=== PATIENT | female | born 1980 | race Caucasian/White ===

== ENCOUNTER 2019-11-11 12:40 | Observation (INO) ==
[2019-11-11] MEDS ORDERED: ASPIRIN PO ONE (12:51)
--- NOTE | 2019-11-11 13:06 | EKG Report ---
Test Performed on : 11/11/2019 12:50:53 PM Test Reason : CP Blood Pressure : / mmHG Vent. Rate : 078 BPM Atrial Rate : 078 BPM P-R Int : 180 ms QRS Dur : 100 ms QT Int : 420 ms P-R-T Axes : 050 037 062 degrees QTc Int : 478 ms Normal sinus rhythm. Normal ECG When compared with ECG of 25-SEP-2017 06:25, No significant change was found Unconfirmed Result
[2019-11-11 13:08] LABS: BASO# 0.02 X1000 (0.0-0.2); BASO% 0.3 % (0.0-0.8); EOS# 0.18 X1000 (0.0-0.7); EOS% 2.7 % (0.0-10.0); HEMATOCRIT 39.3 % (37.0-47.0); HEMOGLOBIN 12.8 g/dL (12.0-16.0); IMM GRAN# 0.02 X1000 (0.0-0.04); IMM GRAN% 0.3 % (0.0-0.5); LYMPH# 2.76 X1000 (1.2-3.4); LYMPH% 42.1 % (20.5-51.1); MCH 28.4 PG (27-31); MCHC 32.6 g/dL (33-37); MCV 87.1 FL (81-99); MONO# 0.35 X1000 (0.11-0.59); MONO% 5.3 % (1.7-9.3); MPV 10.4 FL (7.4-10.4); NEUT# 3.23 X1000 (1.4-6.5); NEUT% 49.3 % (42.2-75.2); PLT 187 X1000 (130-400); RBC 4.51 XMIL (4.2-5.4); RDW 14.3 % (11.5-14.5); WBC 6.56 X1000 (4.8-10.8)
[2019-11-11 13:11] LABS: INR 0.96; PROTIME 12.9 Seconds (11.0-16.0)
--- NOTE | 2019-11-11 13:25 | Diag Imaging Result Doc PS360 ---
EXAM: CHEST-2 VIEWS INDICATION: CP TECHNIQUE: 2 views COMPARISON: 08/11/2017 FINDINGS: The lungs are grossly clear. There is no discrete pleural fluid collection or pneumothorax. The cardiomediastinal silhouette and central vasculature are grossly unremarkable. IMPRESSION: No evidence of acute pathology by plain radiograph. Electronically signed by Marquez Flores 11/11/2019 1:23 PM
[2019-11-11] MEDS ORDERED: TORADOL IV ONE (15:52)
[2019-11-11] MEDS ORDERED: NITROGLYCERIN TOP ONE (16:52)
[2019-11-11 17:21] LABS: AGAP 15; ALB/GLOB RATIO 1.7; ALBUMIN 4.1 g/dL (3.5-5.0); ALKALINE PHOSPHATASE 85 U/L (32-104); BUN 9 mg/dL (8-22); CALCIUM 8.4 mg/dL (8.8-10.2); CHLORIDE 101 mmol/L (98-107); COSMO 288; CREATININE 0.6 mg/dL (0.5-0.9); ESTIMATED GFR > 60; GLUCOSE 283 mg/dL (70-104); GOT 15 U/L (10-30); GPT 24 U/L (10-36); POTASSIUM 4.2 mmol/L (3.5-5.1); SODIUM 140 mmol/L (136-145); TCO2 24 mmol/L (25-35); TOTAL BILIRUBIN 0.24 mg/dL (0.20-1.00); TOTAL PROTEIN 6.5 g/dL (6.3-8.3)
--- NOTE | 2019-11-11 18:06 | PROVIDER DOCUMENTATION ---
This chart was entered by Sabrina Padron Scribe, acting as scribe for Ashutosh Coles MD. HPI-Chest Pain - General Chief Complaint: Chest Pain Stated Complaint: HEART PT--CP Time Seen by Provider: 11/11/19 15:24 Source: patient Allergies/Adverse Reactions: Patient Allergies Allergy/AdvReac Type Severity Reaction Status Date / Time No Known Allergies Allergy Verified 11/11/19 16:18 Home Medications: Home Medication List Medication Instructions Recorded Confirmed Last Taken Type Diltiazem HCl [Cartia Xt] 120 mg PO DAILY 09/21/17 11/11/19 11/10/19 07:00 History Hydrochlorothiazide 25 mg PO DAILY 11/11/19 11/11/19 11/10/19 07:00 History - History of Present Illness-CP Nature of Presenting Problem: Patient is a 38 year old female who presents with chest pain. States chest pain radiates to neck, mid upper back and right arm. Reports shortness of breath, nausea and headache with pain. States symptoms started at 0200 this morning. Denies history of DVT and recent travel. Reports family history of heart disease and blood clots. Location: reports: central Chest Pain Radiation: reports: arms (right), neck Quality of Pain: reports: pressure, sharp Severity in ED: mild Onset/Duration: this morning (0200) Timing: still present, constant Associated Symptoms: reports: headache, nausea, shortness of breath Similar Symptoms Previously?: No Review of Systems - Adult - REVIEW OF SYSTEMS - ADULT Constitutional: reports: no symptoms reported. denies: fever Eyes: reports: no symptoms reported. denies: eye pain Ears, Nose, Mouth & Throat: reports: no symptoms reported. denies: throat pain Cardiovascular: reports: see HPI, chest pain Respiratory: reports: see HPI, shortness of breath Gastrointestinal: reports: no symptoms reported. denies: abdominal pain Genitourinary: reports: no symptoms reported. denies: flank pain Musculoskeletal: reports: see HPI, neck pain, other (right arm pain) Integumentary: reports: no symptoms reported Neurological: reports: see HPI, headache/migraines (LONG) Psychiatric: reports: no symptoms reported Endocrine: reports: no symptoms reported Hematologic/Lymphatic: reports: no symptoms reported, other (no bleeding). denies: blood clots Allergic/Immunologic: reports: no symptoms reported All Other Systems: Reviewed and Negative Past History - Adult - PAST MEDICAL HISTORY-ADULT Review of Records: reports: Old Records Reviewed Major Childhood Illnesses: reports: denies history Cardiovascular: reports: HTN, palpitations Respiratory: reports: sleep apnea Gastrointestinal: reports: other (H. PYLORI) Obstetrical/Gynecological: reports: denies history Genitourinary: reports: denies history Musculoskeletal: reports: fibromyalgia Neurological: reports: denies history Psychiatric: reports: anxiety, ptsd Endocrine/Immune: reports: Diabetes, thyroid disorder Other Conditions: reports: denies history - PRIOR SURGERIES/PROCEDURES Surgical/Procedure History: reports: cholecystectomy, hysterectomy, - IMMUNIZATION STATUS Childhood Immunizations: See Nurse Assessment Flu Vaccine: See Nurse Assessment - FAMILY HISTORY Family History: other (blood clots) - SOCIAL HISTORY Smoking: cigarettes (former) Substance Use: denies Alcohol Use Frequency: never Physical Exam-General - PHYSICAL EXAM-ADULT Initial Vital Signs Reviewed: Yes - CONSTITUTIONAL General Appearance: alert, no apparent distress. negative: lethargic - EYES Eyes: negative: conjuctival exudate, scleral icterus, sunken eyes - HEAD, EARS, NOSE, MOUTH & THROAT HENMT: moist mucous membranes, pharynx normal - NECK Neck: normal inspection. negative: lymphadenopathy, other (mass) - RESPIRATORY Respiratory: chest non-tender, normal breath sounds, no respiratory distress. negative: rales, stridor, wheezing - CARDIOVASCULAR Cardiovascular: regular rate, rhythm, no gallop, no murmur. negative: friction rub - GASTROINTESTINAL (ABDOMEN) Abdominal Exam: non tender. negative: guarding, tenderness - MUSCULOSKELETAL Extremity: non-tender, pedal edema (1 + pitting edema to bilateral lower extremities.). negative: erythema - SKIN Integumentary: normal color, warm/dry. negative: diaphoresis - NEUROLOGIC Neurologic: grossly normal - PSYCHIATRIC Psych/Mental Status: normal mood/affect, normal thought content, normal thought process. negative: anxious - HEART Score HEART Score: History: Moderately Suspicious HEART Score: ECG: Normal HEART Score: Age: < or = 45 Years HEART Score: Risk Factors for Atherosclerotic Disease: > or = 3 Risk Factors or History of Atherosclerotic Disease HEART Score: Troponin: < or = Normal Limit Total HEART Score:: 3 Progress - PLAN OF CARE/RESULTS Progress/Plan/Lab Results: Vital Signs - 8 hr 11/11/19 12:49 11/11/19 14:33 11/11/19 15:27 Temperature 97.8 F 98.3 F 98.4 F Pulse Rate 78 76 74 Respiratory Rate 18 16 20 Blood Pressure 172/113 137/87 127/86 O2 Sat by Pulse Oximetry 94 L 97 98 11/11/19 15:30 11/11/19 16:00 Temperature Pulse Rate 74 77 Respiratory Rate 20 21 Blood Pressure 132/80 138/86 O2 Sat by Pulse Oximetry 96 94 L Laboratory Results - last 24 hr 11/11/19 11/11/19 11/11/19 12:03 12:53 12:53 WBC 6.56 RBC 4.51 Hgb 12.8 Hct 39.3 MCV 87.1 MCH 28.4 MCHC 32.6 L RDW Std Deviation 14.3 Plt Count 187 MPV 10.4 Immature Gran % (Auto) 0.3 Neut % (Auto) 49.3 Lymph % (Auto) 42.1 Garrett % (Auto) 5.3 Eos % (Auto) 2.7 Baso % (Auto) 0.3 Immature Gran # (Auto) 0.02 Neut # (Auto) 3.23 Lymph # (Auto) 2.76 Garrett # (Auto) 0.35 Eos # (Auto) 0.18 Baso # (Auto) 0.02 PT 12.9 INR 0.96 PTT (Actin FS) 26.0 D-Dimer, Quantitative < 0.27 Sodium Potassium Chloride Carbon Dioxide Anion Gap BUN Creatinine Estimated GFR/1.73 m2 BUN/Creatinine Ratio Glucose Calculated Osmolality Calcium Total Bilirubin AST ALT Alkaline Phosphatase Creatine Kinase Troponin T Sql-L-Tlzdbtzlerg Pept Total Protein Albumin Globulin Albumin/Globulin Ratio 11/11/19 11/11/19 11/11/19 12:53 12:53 12:53 WBC RBC Hgb Hct MCV MCH MCHC RDW Std Deviation Plt Count MPV Immature Gran % (Auto) Neut % (Auto) Lymph % (Auto) Garrett % (Auto) Eos % (Auto) Baso % (Auto) Immature Gran # (Auto) Neut # (Auto) Lymph # (Auto) Garrett # (Auto) Eos # (Auto) Baso # (Auto) PT INR PTT (Actin FS) D-Dimer, Quantitative Sodium Potassium Chloride Carbon Dioxide Anion Gap BUN Creatinine Estimated GFR/1.73 m2 BUN/Creatinine Ratio Glucose Calculated Osmolality Calcium Total Bilirubin AST ALT Alkaline Phosphatase Creatine Kinase 52 Troponin T < 0.010 Lww-N-Dczeiagsykm Pept 27 Total Protein Albumin Globulin Albumin/Globulin Ratio 11/11/19 11/11/19 12:53 16:06 WBC RBC Hgb Hct MCV MCH MCHC RDW Std Deviation Plt Count MPV Immature Gran % (Auto) Neut % (Auto) Lymph % (Auto) Garrett % (Auto) Eos % (Auto) Baso % (Auto) Immature Gran # (Auto) Neut # (Auto) Lymph # (Auto) Garrett # (Auto) Eos # (Auto) Baso # (Auto) PT INR PTT (Actin FS) D-Dimer, Quantitative Sodium 140 Potassium 4.2 Chloride 101 Carbon Dioxide 24 L Anion Gap 15 BUN 9 Creatinine 0.6 Estimated GFR/1.73 m2 > 60 BUN/Creatinine Ratio 15 Glucose 283 H Calculated Osmolality 288 Calcium 8.4 L Total Bilirubin 0.24 AST 15 ALT 24 Alkaline Phosphatase 85 Creatine Kinase Troponin T < 0.010 Ksi-N-Ovytizaixbn Pept Total Protein 6.5 Albumin 4.1 Globulin 2.4 Albumin/Globulin Ratio 1.7 Orders Category Date Time Status Cardiac Monitoring DIRECTED Care 11/11/19 12:51 Oxygen Therapy- ED Nursing DIRECTED Care 11/11/19 12:51 Saline Loc NOW Care 11/11/19 12:51 CHEST-2 VIEWS [RAD] Stat Exams 11/11/19 12:51 Completed CBC WITH ELECTRONIC DIFF [HEME] Stat Lab 11/11/19 12:53 Completed CK PROFILE [SP CHEM] Stat Lab 11/11/19 12:53 Completed CMP [COMPREHENSIVE METABOLIC PANEL] [CHEM] Stat Lab 11/11/19 17:36 Ordered CMP [COMPREHENSIVE METABOLIC PANEL] [CHEM] Stat Lab 11/11/19 17:36 Ordered COMPREHENSIVE METABOLIC PANEL [CHEM] Stat Lab 11/11/19 12:51 Ordered D-DIMER [COAG] Stat Lab 11/11/19 12:03 Completed PRO B-NATRIURETIC PEPTIDE Stat Lab 11/11/19 12:53 Completed PROTIME WITH INR [COAG] Stat Lab 11/11/19 12:53 Completed PTT [COAG] Stat Lab 11/11/19 12:53 Completed TROPONIN T Stat Lab 11/11/19 12:53 Completed TROPONIN T Stat Lab 11/11/19 16:06 Completed Aspirin Med 11/11/19 12:51 Discontinued 325 mg PO NOW ONE Ketorolac [Toradol] Med 11/11/19 15:52 Discontinued 30 mg IV NOW ONE Nitroglycerin Med 11/11/19 16:52 Discontinued 0.5 inch TOP NOW ONE CP/SOB/Palp >45 yrs of Age Stat Oth 11/11/19 12:51 Ordered EKG [EKG] Stat Ther 11/11/19 12:51 Draft Transfer/Admit Order [TRANSFER] Routine Transfer 11/11/19 17:27 Ordered Result Diagrams: 11/11/19 12:53 11/11/19 12:53 - REASSESSMENT Reassessment #1 Status: other (Scribe note reviewed/updated) Reassessment #2 Status: other (Given persistant chest pain with risk factors for CAD will plan for admission for stress testing. Patient agreeable with plan. Discussed with the hospitalist team who has accepted the patient.) - EKG 1 Time of EKG reading by physician:: 12:50 EKG Read and Signed by:: Arcadio Rico EKG Interpretation (*Must complete 3 of following elements*): Normal Rate: 78 Rhythm: normal sinus rhythm [place]: normal QRS: normal VT Interval: normal ST Wave: normal Comments: normal ECG - XRAY 1 XRAY Study: Chest Impression: See EMR Report ( EXAM: CHEST-2 VIEWS INDICATION: CP TECHNIQUE: 2 views COMPARISON: 08/11/2017 FINDINGS: The lungs are grossly clear. There is no discrete pleural fluid collection or pneumothorax. The cardiomediastinal silhouette and central vasculature are grossly unremarkable. IMPRESSION: No evidence of acute pathology by plain radiograph. Electronically signed by Marquez Flores 11/11/2019 1:23 PM 11/11/19 1323 Interpreting Physician: Marquez Flores MD Dictated Date/Time: 11/11/19 1322 cc: Arcadio Rico MD; Ledy Ventura) Departure - Departure Date of Disposition Decision: 11/11/19 Time of Disposition Decision: 18:05 DIAGNOSIS: Chest pain Qualifiers: Chest pain type: unspecified Qualified Code(s): R07.9 - Chest pain, unspecified Disposition: ADMITTED INPATIENT 09 Certified Medical Emergency: Emergent Condition: Fair Referrals and Follow-Ups: Ledy Ventura CRNP [Primary Care Provider] - - Critical Care Note This patient required my direct & personal management of CC.: No Attestation - Physician/ MER Attestation Patient care was provided by Advanced Practice Provider:: No The physician spent face to face time with patient:: Yes Advanced Practice Provider documentation review:: Supervising physician onsite and consulted in the evaluation and care of this patient. The physician did have a face to face encounter with the patient. This chart was documented by the indicated scribe, (Sabrina Padron Scribe) and accurately reflects the services I performed and decisions made by me, Ashutosh Coles MD, as attested by the provider's signature.
[2019-11-11] MEDS ORDERED: ZOFRAN IV PRN (18:17)
[2019-11-11] MEDS ORDERED: TYLENOL PO PRN (18:17)
[2019-11-11 19:02] LABS: CHOLESTEROL 159 mg/dL (0-200); HDL 38 mg/dL (45-65); LDL 68 mg/dL; TRIGLYCERIDES 265 mg/dL (35-135); VLDL 53 mg/dL
--- NOTE | 2019-11-11 22:02 | HISTORY AND PHYSICAL ---
PRIMARY CARE PROVIDER: NAVI Brooks PULMONARY DISEASE SPECIALIST: Dr. Steen. CHIEF COMPLAINT: Chest pain. HISTORY OF PRESENT ILLNESS: Ms Redding is a 38-year-old female, with a past medical history of palpitations, diabetes mellitus type 2, anemia, hypothyroidism, fibromyalgia, morbid obesity, sleep apnea, hyperlipidemia, who had a stress test back in 2017 that showed an elevated LVEDP and was placed on Cardizem, with recommendation to optimize her body weight, with normal coronary arteries and an EF of 55%. 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 She has not really been following up with doctors' appointments, has not gotten a refill on her medications, has not been treating her diabetes or her thyroid. She reports this morning around 2 a.m., she started having substernal chest pain that radiated up into the chin and neck area, to her left arm, and in between her shoulder blades. It was associated with palpitations, shortness of breath, nausea, dizziness, and a headache. Nothing really made it better or worse. The pain is currently still there. It is just not as sharp. The only way she could describe it was a pressure-type pain. So far, workup in the emergency department shows that she has had 2 sets of negative cardiac enzymes, EKG that shows normal sinus rhythm, and hyperglycemia with a blood glucose of 283. All other laboratory data is essentially unremarkable. We will put her in for chest pain rule out and set her up for a stress test in the a.m. PAST MEDICAL HISTORY: Per HPI. PAST SURGICAL HISTORY: Left heart catheterization in 2017, hysterectomy, cholecystectomy, C- section x4, liver biopsy. SOCIAL HISTORY: She is . 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 Reports no alcohol, tobacco, or illicit drug use. FAMILY HISTORY: Mother with a blood clot in leg, at the age of 52. Father with idiopathic aortic stenosis, and a grandfather with [place] at the age of 60. HOME MEDICATIONS: 1. Cartia XT 120 mg p.o. daily. 2. Hydrochlorothiazide 25 mg p.o. daily. 3. These are the only current medications she is taking. She states she has not gotten prescriptions refilled for the rest of them. PHYSICAL EXAMINATION: VITAL SIGNS: Temperature is 97.8 degrees, heart rate 76, respirations 21, blood pressure 118/84, O2 is 95% on room air. GENERAL: Ms. Redding is a 38-year-old female who is lying in the bed in no acute distress. HEENT: Atraumatic, normocephalic. PERRL. NECK: Supple. Trachea midline. CARDIOVASCULAR: S1, S2 appreciated. No murmurs, gallops, rubs noted. RESPIRATORY: Lung sounds clear bilaterally. GI: Soft, nontender, nondistended. Positive bowel sounds 4 quads. EXTREMITIES: Lower extremities are negative for edema. NEUROLOGIC: No focal deficits noted. DIAGNOSTIC DATA: Chest x-ray: No evidence of acute pathology. EKG: Normal sinus rhythm at 78 beats per minute. Laboratory data: White count 6, hemoglobin and hematocrit 12 and 39, platelet count is 187,000. D-dimer less than 0.27. Sodium 140, potassium 4.2, BUN 9, creatinine 0.6, blood glucose is 283. Two sets of troponins are negative. ASSESSMENT AND PLAN: 1. Chest pain rule out. She has had 2 sets of negative cardiac enzymes. We will check one more troponin. Will check a lipid profile in the a.m. N.p.o. after midnight. Stress test in the a.m. Echocardiogram. Repeat an EKG. Continue on aspirin. Continue education on risk modification with her diabetes and obesity. 2. Diabetes mellitus type 2 with hyperglycemia. The patient is not currently on any medications for her diabetes. She reports she was on a shot, but it was causing her to have too much yeast, so she quit taking that medication and has not gone back to the doctor to be placed on anything. We will check a hemoglobin A1c in the a.m. Place her on sliding scale with patterned blood sugars. 3. Hypothyroidism. The patient is supposed to be on [place] Thyroid. However, she has not gotten her prescription refill. We will check a TSH in the a.m. 4. Morbid obesity. We will need to continue with educations on diet and exercise. 5. Palpitations. The patient reports she has had an increase in palpitations. She also complains of anxiety. We will continue on her Cardizem. Electrocardiogram is not showing any ectopy. We will continue to monitor on telemetry throughout the night. It is possible she may need an event monitor at discharge. 6. Sleep apnea. 7. Anemia, stable. 8. Further recommendations to follow physician evaluation, laboratory and diagnostic data. Dictated by NAVI Pino for Wesley Rodriguez MD cc: MD Dr. Enio Garnica
[2019-11-11] MEDS: MIRALAX PO SCH (23:00)
--- NOTE | 2019-11-12 05:35 | HISTORY AND PHYSICAL ---
ADDENDUM: Addendum to history and physical dictated by the nurse practitioner. I agree with [*]history, physical, assessment and plan dictated by nurse practitioner's note. In brief. Ms Redding is a 38-year-old lady with past medical history of morbid obesity, smoking, which she quit about 2 months ago, essential hypertension, and elevated left ventricular end-diastolic pressure, history of significant cardiovascular disease on mother's side of family, and premature cardiovascular in father. She comes in with chief complaints of intermittent chest pain which started at about 2:00 in the morning today. Apparently, patient has been experiencing intermittent chest discomfort for about 2 months. She had quit smoking with that regard. However, her chest pain did not get better. She would have approximately one episode every few days. In the morning time today when she was doing her laundry and resting in a recliner, she started experiencing chest pain. It was described as hurting pain in the center of the chest radiating towards right shoulder and neck associated with shortness of breath and nausea, which did not get better so she decided to come to the emergency room. In the emergency room, she was hemodynamically stable. Her labs were mostly unremarkable. Her initial 2 troponins were negative so hospitalist team was consulted for further management. OBJECTIVE: At the time of my evaluation, patient has received nitroglycerin patch. She has been chest-pain free. She denies any more shortness of breath which has improved. VITALS: She is afebrile with temperature of 98.4 degrees, pulse 74, respiratory rate 12, blood pressure 121/95 and saturating 95% on room air. PHYSICAL EXAMINATION: Not in acute distress. LUNGS: Air entry bilaterally equal. No wheeze, rhonchi, or crackles. CARDIOVASCULAR: S1, S2 normal. No murmur or gallop. ABDOMEN: Soft. There is generalized tenderness more pronounced in the epigastric right upper quadrant. EXTREMITIES: No lower extremity edema. She is alert and oriented x3. LABORATORY: WBC of 6.5, hemoglobin 12.8, and platelet count 187,000. Her D-dimer is less than 0.27. BUN is 9, creatinine 0.6. Her glucose is 283, and calcium is 8.4. Troponins are negative x2. MICROBIOLOGY: No new data. IMAGING: Chest x-ray did not have any acute cardiopulmonary process. Electrocardiogram has normal sinus rhythm. ASSESSMENT AND PLAN: 1. Chest pain at rest. She had cardiac catheterization in 2017 which was unremarkable except for elevated left ventricular end-diastolic pressures for which she is on diltiazem. However, she does have risk factors of obesity, smoking, and premature cardiovascular in her father as well as significant cardiovascular disease in maternal family. I will check her troponins. Keep her on aspirin. I will get the stress test tomorrow. We will consult on Cardiology. Her EKG does not have any ST changes to suggest acute coronary syndrome. 2. History of GI issues. The patient has had esophageal stricture requiring dilatation, H. Pylori gastritis, and constipation. I will keep her on proton pump inhibitors, MiraLAX, and I advised her weight reduction. DISPOSITION: 1. I will continue to monitor patient inside the hospital. Plan of care discussed with her. All of her questions have been answered. 2. Hyperglycemia. I will check hemoglobin A1c. cc: Wesley Rodriguez MD
[2019-11-12] MEDS: HUMALOG SUBQ SCH ×4 (06:25→17:21)
[2019-11-12 06:49] LABS: HEMOGLOBIN A1C 11.7 % (4.8-6.0)
[2019-11-12] MEDS ORDERED: PRILOSEC PO SCH (07:00)
[2019-11-12 07:05] LABS: AGAP 12; BUN 12 mg/dL (8-22); CALCIUM 8.2 mg/dL (8.8-10.2); CHLORIDE 103 mmol/L (98-107); COSMO 286; CREATININE 0.6 mg/dL (0.5-0.9); ESTIMATED GFR > 60; GLUCOSE 229 mg/dL (70-104); POTASSIUM 3.8 mmol/L (3.5-5.1); SODIUM 140 mmol/L (136-145); TCO2 25 mmol/L (25-35)
[2019-11-12] MEDS ORDERED: LEXISCAN ONE (08:16)
--- NOTE | 2019-11-12 08:38 | EKG Report ---
Test Performed on : 11/12/2019 08:32:24 AM Test Reason : cp Blood Pressure : / mmHG Vent. Rate : 076 BPM Atrial Rate : 076 BPM P-R Int : 184 ms QRS Dur : 094 ms QT Int : 428 ms P-R-T Axes : 050 102 023 degrees QTc Int : 481 ms Normal sinus rhythm. Rightward axis Nonspecific ST and T wave abnormality Prolonged QT Abnormal ECG When compared with ECG of 11-NOV-2019 12:50, (Unconfirmed) Questionable change in QRS axis Nonspecific T wave abnormality now evident in Lateral leads Confirmed by Amando DIAZ, William Houston ([id number]) on 11/13/2019 10:20:05 AM
[2019-11-12] MEDS ORDERED: ASPIRIN PO SCH (09:00)
[2019-11-12] MEDS ORDERED: HYDROCHLOROTHIAZIDE PO SCH (09:00)
[2019-11-12] MEDS ORDERED: CARDIZEM CD PO SCH (09:00)
[2019-11-12] MEDS: MIRALAX PO SCH (12:07)
[2019-11-12 12:21] LABS: C REACTIVE PROT QUANT 18.56 mg/L (0.00-5.00); URIC ACID 4.6 mg/dL (2.4-5.7)
[2019-11-12] MEDS ORDERED: CARAFATE LIQUID PO SCH (14:00)
--- NOTE | 2019-11-12 14:06 | Diag Imaging Result Document ---
PROCEDURE NAME: MYOCARDIAL PERF SCAN, STR/REST - 11/12/2019 SUMMARY: The patient was administered 15.8 mCi of technetium 99-m sestamibi after which resting cardiac images were obtained. The patient was subsequently stressed using a walking Lexiscan protocol. The patient was administered Lexiscan 0.4 mg intravenously. The heart increased from 77 beats per minute to 113 beats per minute, while the blood pressure went from 127/78 to 142/80. With Lexiscan and walking protocol, the patient reported transient moderate (6/10) chest discomfort with quick resolution. Following the administration of Lexiscan, the patient was administered 46.0 mCi of technetium 99-m after which gated stress cardiac images were obtained. Baseline ECG demonstrated sinus rhythm, low voltage QRS in precordial leads, and nonspecific T- wave abnormality. With Lexiscan, there were no diagnostic ST-segment changes. SPECT images were reconstructed in the short, horizontal long, and vertical long axis. Review of these images demonstrated a large area of mildly diminished activity in the anteroapical region of the left ventricle on the stress images which appears similar on resting images. No significant reversibility is evident. Gated images demonstrate a calculated left ventricular ejection fraction of 78% with symmetrical wall motion/thickening. CONCLUSIONS: 1. Adequate response to Lexiscan. 2. Clinically, the patient reported transient moderate chest discomfort with Lexiscan, the features of which are predominantly atypical for myocardial ischemia. 3. Electrocardiographically, there were no diagnostic ST-segment changes on the ECG following the administration of Lexiscan. 4. Lexiscan sestamibi images demonstrate a large area of fixed, mildly diminished activity in the anteroapical region as described with corresponding preserved regional wall motion, probably due to breast attenuation artifact in this obese patient. There is no convincing scintigraphic evidence of inducible myocardial ischemia. Normal left ventricular systolic function demonstrated. cc: MD Nathen Thomas MD
[2019-11-12 16:44] VITALS: BP 131/74
--- NOTE | 2019-11-12 19:51 | CARDIOLOGY CONSULTATION ---
DATE: 11/12/2019 CONSULTATION REQUESTED BY: Hospitalist service REASON FOR CONSULTATION: Chest pain. HISTORY: Mrs. Redding is a pleasant 38-year-old female who is known to me. I had seen this patient previously for evaluation of chest pain. At this time, she presented to the hospital with complaints of sudden onset of chest pain that woke her up from her sleep at about 2:00 in the morning. Pain started in the very center of the chest. Initially moved to the left shoulder and then to the throat area, neck and then to the right shoulder blade area. This was of 10/10 in intensity. She ended up coming to the ER at about 11:00 in the morning yesterday. They did a chest x-ray that showed no acute pathology. A 12-lead EKG shows sinus rhythm with no obvious abnormality. Low voltage is noted. They scheduled her for a stress test to be done this morning. This has been completed, and I have already reviewed it. The patient at this time is still having some discomfort. She says that after nitroglycerin paste was applied to her chest she experienced some relief. The discomfort is mild at this time. PAST MEDICAL HISTORY: Significant for diabetes mellitus type 2. She is using insulin at this time. The patient has hypertension. She has been taking medication for it and also for some peripheral edema. The patient was diagnosed with sleep apnea syndrome; however, she cannot sleep regularly with a CPAP mask. The patient is quite obese. Her body mass index is 43.9, making her morbidly obese. She has hyperlipidemia. She has been diagnosed with fibromyalgia, and in the past, she has tested positive for antinuclear antibodies and the suspicion of lupus has been hovering around her case. The patient also has been diagnosed by Dr. Loo as possibly having a case of hemochromatosis. At this time, she is not taking any specific treatment for that. SURGICAL HISTORY: She had previous cholecystectomy, neck surgery. She has had 4 sections. SOCIAL HISTORY: She is , lives with her . She has 4 children, ages from 7 to 13. She works at the [employer]. Most of the time, she spends her time standing on her feet. She quit smoking about 2 months ago. FAMILY HISTORY: Very strongly positive for parents having coronary heart disease in both of them. Father at a young age. REVIEW OF SYSTEMS: She has been doing relatively well. There has been no changes in the recent past prior to the onset of her symptoms. Back in September of 2017, we proceeded to perform left heart catheterization to evaluate her for recurrent chest pains and an abnormal nuclear stress test. The stress test had been done on August 2017 and that study showed scintigraphic suggestion of attenuation of apical anterior wall versus tiny scar with minimal pericardial ischemia with a septal basal reversible defect. The heart catheterization that was carried out on September 2017 showed that she had normal epicardial coronary arteries. PHYSICAL EXAMINATION: Vital signs: Today shows that her blood pressure is 135/83, temperature 98.3 degrees, pulse 72, respirations 18. General: She is awake, alert, oriented, in no distress. HEENT: Unremarkable. Chest: Clear to auscultation and percussion. Cardiovascular: Heart sounds are regular and rhythmic. No gallop or murmur is noted. Abdomen: Obese and nontender. Extremities: Show good pulses. No peripheral edema. Neurologic: Nonfocal. Moves all 4 extremities. LABORATORY DATA: Her renal function is normal. Her lipid panel, LDL is 60 mg/dL, HDL 30 mg/dL, triglycerides 165 mg/dL, cholesterol 159 mg/dL. TSH is elevated at 9.15. Of note, her hemoglobin A1c is 11.7% indicating very poor control of her diabetes. Her proBNP level was normal at 27 pg/mL, which is normal. DIAGNOSTIC DATA: Her stress test done today shows normal left ventricular ejection fraction with normal rise from rest to stress. EKG really shows no significant abnormalities. The perfusion images showed patches of attenuation. No definite ischemic changes are noted. This stress test is really not consistent with coronary heart disease. IMPRESSION: 1. Patient presenting with what appears to be noncardiac chest pain. The pain is worsened by motion. It is somewhat pleuritic also in nature. 2. History of abnormal myocardial perfusion stress test in 2017 followed by cardiac catheterization that showed normal epicardial coronary arteries. 3. Morbid obesity. 4. History of fibromyalgia. 5. Poorly controlled diabetes mellitus type 2 with markedly elevated hemoglobin A1c. 6. Reported history of hemochromatosis. 7. Sleep apnea syndrome. RECOMMENDATIONS: At this time, I will request inflammatory markers. I would strongly recommend a referral to endocrinology for optimization of her diabetes mellitus type 2. At this time, I do not have any further suggestions. Cardiac-bravo, she really does not need any further testing. cc: Nathen Steen MD MTDD
--- NOTE | 2019-11-12 22:57 | ECHO REPORT ---
ORDER DATE: 11/12/2019 MEASUREMENTS: Septal thickness 1.2. Left ventricular internal diameter in diastole 5.5. Posterior wall thickness 1.0. Left ventricular internal diameter in systole 3.3. Aortic root 3.5. Left atrium 3.9. SUMMARY: 1. Technically difficult study due to limited acoustic window quality. Intravenous echo contrast agent Optison was utilized to enhance endocardial definition. 2. Aortic valve is without evidence of structural abnormality and appears to open adequately on 2- dimensional images. Peak gradient across aortic valve is less than 10 mmHg. Mitral and tricuspid valves are without evidence of structural abnormality while pulmonic valve is not well demonstrated. There is trace mitral regurgitation. Aortic root is normal in size. 3. Normal left ventricular dimensions suggested. Estimated left ejection fraction appears to be at least 65%. No regional wall motion abnormalities evident. Left atrium, right atrium, and right ventricle are normal in size with grossly preserved right ventricular systolic function. 4. No pericardial effusion. 5. Inferior vena cava not well demonstrated. CONCLUSIONS: 1. Technically difficult study. 2. No significant valvular abnormality evident. 3. Estimated left ejection fraction at least 65%. cc: Miah Mullins MD
--- NOTE | 2019-11-13 14:28 | DISCHARGE SUMMARY ---
ADMISSION DATE: 11/11/2019 DISCHARGE DATE: 11/12/2019 DISCHARGE DIAGNOSES: 1. Chest pain. Acute coronary syndrome ruled out. 2. Diabetes mellitus type 2. 3. Hypothyroidism. 4. Morbid obesity. 5. Sleep apnea. 6. Anemia of chronic disease. PROCEDURES: 1. Chest x-ray done on admission showed no evidence of acute pathology by plain radiograph. 2. Myocardial perfusion scan, nuclear medicine, performed today showed adequate response to Lexiscan. Electrocardiographically, there were no diagnostic ST-segment changes on the ECG following the administration of Lexiscan. There was no convincing scintigraphic evidence of inducible myocardial ischemia. Normal left ventricular systolic function demonstrated with an EF of 78%. HOSPITAL COURSE: In brief, this is a 46-year-old, female with a past medical history of morbid obesity, smoking, essential hypertension, and history of significant cardiovascular disease on mother's side and premature cardiovascular in father. She basically came to the emergency department complaining of chest pain. She reports some stressors of life. Because of this substernal chest pain, she was admitted to the hospital. Considering her risk factors, we decided to proceed with a Lexiscan stress test which showed results as above. The patient is currently chest pain-free, breathing okay. She is going to be discharged in stable condition and she is going to be seen by her primary care physician in a week. DISCHARGE PHYSICAL EXAMINATION: Vital Signs: Temperature 98.7 degrees, heart rate 71, respiratory rate 20, blood pressure 131/74, O2 saturation 93% on room air. General Examination: This is a 38-year-old, female, morbidly obese, lying in bed, in no acute distress. Cardiovascular Examination: S1 and S2 heard. No murmurs, gallops, or rubs. Regular rate and rhythm. Respiratory Examination: Clear bilaterally to auscultation. No work of breathing or using accessory muscles. Abdomen: Soft, nontender to palpation. Bowel sounds present. No organomegaly. Extremities: No clubbing, cyanosis, or edema. Peripheral pulses present in both legs. Neurological Examination: The patient is alert and oriented x3. Moves 4 extremities. DISCHARGE DISPOSITION: Home to self-care. FOLLOWUP: With nurse practitioner, Ledy Zhou in a week. LIST OF MEDICATIONS: We are not making any changes to her current list of medications. Those are as follows: 1. Cardia XT 120 mg 1 tablet p.o. daily. 2. Hydrochlorothiazide 25 mg 1 tablet p.o. daily. 3. Sertraline 50 mg 1 tablet p.o. in the a.m. 4. Thyroid 60 mg 1 tablet p.o. daily. cc: Henrique Solitario MD MTDD
== END 2019-11-12 18:46 | disposition home or self-care (01) ==
LOC: ED 12:40 → 4N 12:40 → SUATTDRO 21:23
PROVIDERS: ATTEND Internal Medicine